=== PATIENT | female | born 1965 | race Caucasian/White ===

== ENCOUNTER → 2017-12-30 | Day surgery (SDC) | payer OTHER ==
[~2017-12-30] VITALS: Ht 157.5 cm; Wt 113.0 kg
[~2017-12-30] MED LIST: ACETAMINOPHEN 1000 MG/100 ML 100 ML IV ONE; BUPIVACAINE/EPINEPHRINE 0.25% PF 30 ML VIAL INFIL ONE; CHLORHEXIDINE GLUCONATE 2 % 1 PACK (2 CLOTHS) TOPICAL PRN; FENO145T2 PO; GLIP5TAB8 PO; GLUC1000 PO; GUAI100S5 PO; INSU0.2I SQ; LACTATED RINGER'S 1000 ML IV PRN; LIDOCAINE 1%/EPINEPHrine 1:100,000 SOLN 20 ML VIAL ONE; LISI-519 PO; MIDAZOLAM HCL 2 MG/2 ML VIAL ONE; POVIDONE IODINE 5% (ANTISEPSIS KIT) 4 APPLICATIONS EACH NARE PRN; SODIUM CHLORID 0.9% 500 ML IV PRN; VITA500012 PO; ceFAZolin 2 GM PREMIX 50 ML IV SCH; fentaNYL CITRATE 250 MCG/5 ML AMP ONE
--- NOTE | 2017-12-30 09:17 | PD.OP ---
cc: Krunal Riley MD Operative Report Date of Surgery: Dec 30, 2017 Preoperative Diagnosis: Chronic cholecystitis and cholelithiasis Postoperative Diagnosis: Chronic cholecystitis and cholelithiasis Procedure: Laparoscopic cholecystectomy Anesthesia: General endotracheal Surgeon: Krunal Riley Fine Wire Drawer(s): None Operation and Findings: Operative findings: The patient was found to have a moderately shrunken, very thick-walled gallbladder. There is a stone inspissated into the wall of the gallbladder near its neck which caused hydrops of the gallbladder and the fundus. No other abnormalities are noted. The cystic duct and common bile duct were seen to be of normal caliber. Operative procedure: The patient was brought to the operating room and after satisfactory general endotracheal anesthesia obtained, the abdomen was prepped and draped in the usual sterile fashion. 0.5% Marcaine with epinephrine was used to infiltrate the skin for local anesthesia. Incision was made above the umbilicus and a 5 mm trocar was inserted into the peritoneal cavity under direct visualization without problem. The abdomen was insufflated to 15 mmHg using carbon dioxide after which the camera was reinserted and visceral injury inspected for, with none being identified. Under direct visualization a 12 port and a 5 port placed in the upper abdomen. The fundus the gallbladder was identified grasped and retracted superiorly over the right lobe of the liver. There are no adhesions to the gallbladder. Pinto's pouch was then grasped and retracted inferiorly and laterally, placing tension on the hepatoduodenal ligament. The cystic duct and cystic artery were dissected free without problem and the critical view was thus established. Once the critical view had been obtained, the cystic duct and cystic artery were both divided with the harmonic scalpel near the junctions with the gallbladder. The gallbladder was then dissected free from the liver bed using the harmonic scalpel. Is placed within an Endo Catch bag and brought to the upper 12 mm port without problem. It was sent for permanent pathology. The liver bed was inspected and found to be hemostatic. The cystic duct and cystic artery stumps were both inspected and found to be intact with no leakage of bile or blood. The abdomen was once again inspected and no visceral injury was identified. The carbon dioxide was then vented as completely as possible to the atmosphere after which the ports were removed and the skin closed with interrupted 4-0 PDS subcuticular stitches. Surgeons were applied the patient was then taken from the operating room, in satisfactory condition, having tolerated the procedure without problem. Estimated blood loss was less than 5 mL's. The instrument, sponge, needle counts were reported as being correct 2 at the end of the procedure. Krunal Riley MD Dec 30, 2017 09:17
[2017-12-30 09:26] VITALS: PULSE 85
[2017-12-30 11:35] VITALS: BP 110/72; PULSE 70; RESP 16; O2SAT 96
[2017-12-30 11:38] VITALS: TEMP 97.8
== END | disposition home or self-care (01) ==
LOC: PHSDC 06:39
PROVIDERS: ATTEND Surgery
DX: K80.10 Calculus of gallbladder with chronic cholecystitis without obstruction (principal); E11.9 Type 2 diabetes mellitus without complications; Z79.4 Long term (current) use of insulin
CPT/HCPCS: 00790; 47562; 82948; 88304; J0131; J0690; J2250; J3010; J7120